=== PATIENT | female | born 1940 | race Caucasian/White ===

== ENCOUNTER 2022-08-17 09:48 | Outpatient (CLI) | payer OTHER, SELFPAY | END 2022-08-17 09:49 | disposition home or self-care (01) | LOC: NFLDREF 08-19 20:09 | PROVIDERS: PCP Internal Medicine; Referring Provider Internal Medicine; Visit Provider Internal Medicine | DX: E78.5 Hyperlipidemia, unspecified (principal) | CPT/HCPCS: 80061 ==

== ENCOUNTER 2023-03-26 13:00 | Outpatient (RCR) | payer MEDICARE, SELFPAY ==
--- NOTE | 2022-12-28 11:14 | PT.OPEX ---
PT [place] Outpatient Eval PT [facility] Outpatient Eval Start: 12/05/22 12:54 Freq: Status: Active Protocol: Document 12/12/22 13:07 HN (Rec: 12/12/22 15:19 HN [id number]) E-signed By Lisa Zapata DPT Physical Therapy Outpatient Evaluation Insurance Information Recert Due Date 03/11/23 Insurance Name [facility] Insurance Information/Comments [facility] Medical Diagnosis M79. 605 for Pain in left leg M79. 604: Pain in right leg. Treating Diagnosis M54. 4: low back pain with sciatica Referring MD Lisa Beach MD Subjective Subjective Patient is a 82 year old female with bilateral glute and leg pain for last 6 months with insidious onset. Worse on L than R nerve pain on L side, bilateral glute pain and left sided nerve pain , thin line of numbness/pain. Pain characteristics: sharp bilateral glute pain, worse in morning and better and night Aggravating factors: worse in morning, sleeps on back, standing for prolonged periods of time. carrying heavier things Easing Factors: soft cushion, walking every day Prior level of function: walking 30 minutes a day every day Current limitations: worse in morning, sleeps on back, standing for prolonged periods of time. carrying heavier things Red flags: denies hx of cancer , recent infection, numbness/ tingling, bowel/bladder changes Imaging: none at this time PMH: HTN managed with medication, celebrex, osteoporosis maybe, R hip replacement, latex allergy Social History: pt is retired, lives with , spending a lot of time on financials, does cooking, enjoys being outside, yardwork. 3 stories uses rail pretty heavily Pain Comments Current: 1-2 Best: 1- Worst: 10/18 Current Work Status Retired Preferred Name Karla Objective Other/Pertinent Objective Lumbar range of motion (% full range of motion) Flexion: 100% Extension: 75% with some increased low back soreness Left sidebendin% Right sidebendin% Left rotation: 100% Right rotation: 100% Hip range of motion (degrees): Flexion: no loss External rotation: mild loss Internal rotation: mod loss Manual muscle testing: Hip flexion: 4/5 L , 4/5 R Hip abduction: 3+/5 L , 3+/5 R Hip extension: 5/5 L , 5/5 R Knee extension: 3+/5 bilaterally, not tested in prone Knee flexion: 4/5 L , 4/5 R Ankle DF: 5/5 L , 5/5 R Ankle PF: 3+/5 tested in sitting TA activation: Special tests: Slump: positive on R Additional special testing deferred Palpation: increased tenderness along bilateral glute med/piriformis with palpation Assessment Assessment/Impression Patient is a 82 year old with complaints of bilateral glute pain and L sided nerve pain . Patient demonstrates impaired hip range of motion, decreased hip strength, positive slump, and increased posterior glute pain consistent with sciatica. The impairments impact the patients prolonged standing, immediately upon waking, and participation in ADLs and IADLs. Patient will benefit from skilled physical therapy to address the impairments and activity limitations listed above. Prognostic factors include chronic nature of symptoms, patient age, and medical comorbidities. Primary Functional Limitations prolonged standing, immediately upon waking, and participation in ADLs and IADLs. Plan of Care Rehabilitation Potential Good Physical Therapy Goals ocean transportation intermediary goals (12 weeks ) 1. Patient will tolerate standing >25 minutes with no increase in pain order to complete ADLs 2. Patient will demonstrate independence with HEP in order to manage symptoms independently at home 3. Patient will tolerate lifting 20 pounds with no increase in pain in order to carry groceries/laundry/ grandchildren. 4. Patient will reports less than 3/10 pain in the morning with waking in order to improved tolerance with morning ADLs and IADLs. 5. Patient will demonstrate 5x time sit to labeling associate 12 seconds or less to demosntrate decreased risk for falls. Coordination/Communication With Referral Source Treatment Plan/Direct Interventions Electrical Stimulation,Gait Training,Joint Mobilization, Manual Therapy,Neuromuscular Re-ed,Self-Care/Home Management,Therapeutic Activities,Therapeutic Exercises Frequency/Duration 1x/week for up to 12 weeks Patient Will Be Discharged From Therapy Completion of LTG(s),Skills Plateau Evaluation Billing Untimed Code Treatment Minutes 26 Complexity Low Certification Information Initial Certification Date 12/12/22 Ending Certification Date 03/11/23 Provider Signature Shows Agreement With POC & Medical Necessity Physician Signature & Date Requested Please Sign/Date Here Physician Comment/Change : Physician NPI Number #
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
== END 2023-06-27 16:53 | disposition home or self-care (01) ==
PROVIDERS: PCP Internal Medicine; Visit Provider Internal Medicine
DX: M79.604 Pain in right leg (principal); M79.605 Pain in left leg; M54.40 Lumbago with sciatica, unspecified side; Z51.89 Encounter for other specified aftercare
CPT/HCPCS: 97110; 97140; 97161

== ENCOUNTER 2024-03-31 14:14 | Outpatient (CLI) | payer MEDICARE, SELFPAY | END 2024-03-31 14:15 | disposition home or self-care (01) | LOC: NFLDREF 14:15 | PROVIDERS: PCP Internal Medicine; Visit Provider Internal Medicine | DX: I10 Essential (primary) hypertension (principal) | CPT/HCPCS: 80048 ==

== ENCOUNTER 2024-10-12 13:38 | Outpatient (CLI) | payer MEDICARE, SELFPAY ==
--- NOTE | 2024-10-12 13:45 | CRLHL7_ITS ---
For Patients: As a result of the 21st Century Cures Act, medical imaging exams and procedure reports are released immediately into your electronic medical record. You may view this report before your referring provider. If you have questions, please contact your health care provider. Indication: Low back pain. Technique: Multiplanar multisequence noncontrast MR images of the lumbar spine. Comparison: Lumbar spine radiograph 10/05/2024. Findings: The lumbar lordosis is preserved. Qfof-st-ucjvdjjh rightward lumbar curvature. Vertebral body heights maintained. No acute fracture. No T1 hypointense lesions. Normal conus terminates at L1-2. T12-L1: Moderate disc height loss. Minimal endplate edema. Shallow disc bulge. Mild facet arthropathy. Mild spinal canal narrowing. No neural foraminal narrowing. L1-2: Mild retrolisthesis. Moderately advanced disc height loss. Mild vertebral body edema. Posterior disc bulge. Mild facet arthropathy. Minimal spinal canal narrowing. Moderate right lateral recess narrowing. No neural foraminal narrowing. L2-3: Mild retrolisthesis. Severe left eccentric disc height loss. Mild vertebral body edema. Mild facet arthropathy. Mild spinal canal narrowing. Moderate left and nafr-ku-sfhtahod right lateral recess stenosis. Minimal left without right neural foraminal narrowing. L3-4: Mild retrolisthesis. Severe disc height loss. Minimal vertebral body edema. Posterior disc bulging and endplate spondylitic ridging. Moderate facet arthropathy. Uwox-yk-fzoiurwd spinal canal and lateral recess narrowing. Mild left without right neural foraminal narrowing. L4-5: Grade 1 anterolisthesis measuring 5 mm. Moderately advanced disc height loss. Mild vertebral body edema. Posterior disc bulge with superimposed small right subarticular disc extrusion demonstrating cephalad migration. Advanced facet arthropathy. Thickening ligamentum flavum. Severe spinal canal and lateral recess stenosis. Right foraminal synovial cyst measuring 2 mm. Tsjw-if-fasyxupx left and moderately severe right neural foraminal stenosis. Edema in the right posterior elements. L5-S1: Minimal grade 1 anterolisthesis. Moderate disc degeneration. Posterior disc bulge. Advanced facet arthropathy. Mild spinal canal narrowing. Moderate right and mild left lateral recess stenosis. Xojz-ul-hrjuuddo right and mild left neural foraminal stenosis. Bilateral renal cysts. Impression: 1. At L4-5, grade 1 anterolisthesis and advanced facet arthropathy contribute to severe spinal canal and lateral recess stenosis. Small synovial cyst contributes to moderately severe right neural foraminal stenosis. Edema in the right posterior elements most compatible with stress response. 2. At L5-S1, moderate right and mild left lateral recess stenosis. Vihe-rh-yhcwzfde right neural foraminal stenosis. Dictated by Dennis Montoya MD @ 10/12/2024 3:53:40 PM (Electronically Signed)
== END 2024-10-12 13:39 | disposition home or self-care (01) ==
LOC: MRI 13:39
PROVIDERS: PCP Internal Medicine; Visit Provider Family Medicine
DX: M54.50 Low back pain, unspecified (principal); M48.061 Spinal stenosis, lumbar region without neurogenic claudication; M48.07 Spinal stenosis, lumbosacral region; G89.29 Other chronic pain
CPT/HCPCS: 72148

== ENCOUNTER 2024-10-30 08:04 | Outpatient (CLI) | payer MEDICARE, SELFPAY | END 2024-10-30 08:05 | disposition home or self-care (01) | LOC: INJ CL 08:05 | PROVIDERS: PCP Internal Medicine; Visit Provider Family Medicine | DX: M54.16 Radiculopathy, lumbar region (principal); M48.062 Spinal stenosis, lumbar region with neurogenic claudication | CPT/HCPCS: 62323; J0702; Q9966 ==

== ENCOUNTER 2024-12-13 12:35 | Outpatient (CLI) | payer OTHER, MEDICARE, SELFPAY | END 2024-12-13 12:36 | disposition home or self-care (01) | LOC: AMB 12-15 16:08 | PROVIDERS: PCP Internal Medicine; Visit Provider Student in an Organized Health Care Education/Training Program | DX: S09.90XA Unspecified injury of head, initial encounter (principal); V44.6XXA Car passenger injured in collision with heavy transport vehicle or bus in traffic accident, initial encounter; Y92.410 Unspecified street and highway as the place of occurrence of the external cause | CPT/HCPCS: A0425; A0429 ==

== ENCOUNTER 2024-12-13 13:01 | Emergency (ER) | payer OTHER, MEDICARE, SELFPAY ==
[2024-12-13] VITALS (10 sets, daily range): BP systolic 166–191; BP diastolic 93–106; PULSE 63–73; RESP 16; TEMP 36.7; O2SAT 95–100
--- OUTSIDE RECORDS SUMMARY | 2024-12-13 13:03 | XMS_ITS | Clinical Summary ---
Author Organization happn [facility] Address [address] [place] [id number] Care Team Providers Care Top Inventory Control Executive Name Role Phone Lisa Beach MD Primary Care Provider [phone] Allergies Active Allergy Reactions Criticality Noted Date Comments Latex Anaphylaxis 07/04/2007 Medications FISH OIL 1,000 MG CAP 1 daily 0 7 Active MEDICATION ORDER COMPOSER calcium supp daily 0 7 Active amLODIPine (NORVASC) 5 mg tabletIndications :Unspecified essential hypertension Take 1 tablet by mouth once daily. 90 tablet 1 1 Active Celecoxib (CELEBREX) 50 mg capsule Take 1 capsule by mouth. 0 3 Active Active Problems Problem Noted Date Diagnosed Date Sensorineural hearing loss, bilateral 09/25/2007 Unspecified essential hypertension 07/04/2007 Anemia, unspecified 07/04/2007 Enthesopathy of hip region 07/04/2007 Encounters Date Type Department Care Team Description 12/11/2024 Nurse Triage [facility] Nurse Triage Lisa Beach MD Toe Pain/problem 12/11/2024 Nurse Triage [facility] Samantha Yancey [facility] [address] [place]THA [place]Y [place] [id number] Lisa Beach MD Error-please disregard (error) 12/11/2024 Nurse Triage [facility] Centralized Nurse Triage Lisa Beach MD Toe Pain/problem (R 2nd toe ) 12/11/2024 Nurse Triage [facility] Nurse Triage Lisa Beach MD Toe Pain/problem 10/30/2024 8:20 AM CDT Office Visit [facility] [address] [facility] [id number] Camron Rodriguez MD Procedure (L5-S1 ILESI) 10/30/2024 Travel 10/19/2024 Transcribe Orders [facility] [address] [facility] [address] Camron Rodriguez MD 10/12/2024 Orders Only [facility] Scanner 1 scan: (1-Ord) [place], LUMBAR SPINE WO CON, 10/12/2024 from Last 3 Months Immunizations Immunization Administration Dates Next Due AMB Influenza, IIV3 (Age >=3 years)(Flu Clinic Only) 01/22/2008 Influenza, IIV3 (Age >=3 years) 12/12/2009,02/22,04/17/2000 Td (Age >=7 Years) 04/17/2000 Family History Medical History Relation Name Comments Heart Disease Father Diabetes Maternal Uncle Heart Disease Mother Osteoporosis Mother Cancer-breast No Family History Relation Name Status Comments Father Maternal Uncle Mother Social History Tobacco Use Types Packs/Day Years Used Date Smoking Tobacco: Never Smokeless Tobacco: Never Alcohol Use Standard Drinks/Week Comments No 0 (1 standard drink = 0.6 oz pur e alcohol) Comments No Sex and Gender Information Value Date Recorded Sex Assigned at Not on file Legal Sex 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 Gender Identity Not on file Sexual Orientation Not on file Obstetrics History Para Term AB IAB SAB Ectopic Multiple Livin g Live Births 2 2 Date Outcome GA Total Labor Labor/2nd/3rd Weight Sex Type Anes PTL Kimberly A1 A5 Name Clin Last Filed Vital Signs Vital Sign Reading Time Taken Comments Blood Pressure 133/77 10/08/2012 4:41 PM CDT Pulse 75 10/08/2012 4:41 PM CDT Temperature 36.5 C (97.7 F) 10/08/2012 4:41 PM CDT Respiratory Rate - - Oxygen Saturation 97% 10/08/2012 4:41 PM CDT Inhaled Oxygen Concentration - - Weight 77.2 kg (170 lb 4 oz) 10/08/2012 4:41 PM CDT Height 163.8 cm (5' 4.5) 10/08/2012 4:41 PM CDT Body Mass Index 28.77 10/08/2012 4:41 PM CDT Plan of Treatment Upcoming Encounters Date Type Department Care Team (Late st Contact Info) Description 12/30/2024 3:00 PM CDT Office Visit [facility] [address] [place] [address] Matteo Muñoz DPM [address] [place] [address] Health Maintenance Due Date Last Done Comments Depression screening for age 12+ 1950 BMI (ht and wt on same day) for age 18+ 1956 Pneumococcal series for age 50+ (1 of 1 - PCV) 1988 Zoster (shingles) series for age 50+ (1 of 2) 1988 Medicare Wellness for age 65+ 10/11/2003 Tetanus booster 04/17/2010 04/17/2000 RSV vaccine for adults or (1 - 1-dose 75+ series) 2013 COVID-19 vaccine series ( season) 2024 03/14/2021, 05/27/2020, 04/29/2020 Influenza Vaccine (#1) 2024 0, 01/22/2008, 02/22/2007, Additional history exists DEXA/DXA scan for age 65+ Completed 11/24/2009, 08/2007 Hepatitis B series for 19+ Aged Out N o longer eligible based on patient's age to complete this topic Procedures Procedure Name Priority Date/Time Associated Diagnosis Comments AMB EPIDURAL STEROID INJECTION Routine 10/30/2024 12:00 AM CDT Lower back pain Other chronic pain Spinal stenosis, unspecified spinal region Radiculopathy, site unspecified SCAN-MRI INTERPRETATION 10/12/2024 12:00 AM CDT XR DXA BONE DENSITY 2 SITES AXIAL Routine 11/24/2009 10:15 AM CDT Estrogen deficiency from Last 3 Months or Most Recently Relevant to Health Maintenance Results * AMB EPIDURAL STEROID INJECTION (10/30/2024 12:00 AM CDT) us Camron Rodriguez MD NEUROLOGY ORD Final Resu lt * SCAN-MRI INTERPRETATION (10/12/2024 12:00 AM CDT) Anatomical Region Laterality Modality Other us Scanner OTHER Final Result * XR DEXA BONE DENSITY 2 SITES (11/24/2009 10:15 AM CDT) Anatomical Region Laterality Modality Spine, HIPS, HIPL, HIPR Other Narrative 11/25/2009 11:17 AM CDT Please see scanned document for results of this study. Procedure Note Gaviota Durbin PA - 11/25/2009 Please see scanned document for results of this study. us Norma Johnson NP DEXA Final Result from Last 3 Months or Most Recently Relevant to Health Maintenance Insurance [facility] MR Care Teams Top Inventory Control Executive Relationship Specialty Start Date End Date Lisa Beach MD [address] [place] [address] PCP - General Internal Medicine 10/08/12
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
== END 2024-12-13 14:38 | disposition home or self-care (01) ==
PROVIDERS: Emergency Provider Family Medicine; PCP Internal Medicine
DX: S00.03XA Contusion of scalp, initial encounter (principal); V43.62XA Car passenger injured in collision with other type car in traffic accident, initial encounter
CPT/HCPCS: 70450; 71045; 72125; 72170; 99284; 99285

== ENCOUNTER 2025-02-19 17:03 | Emergency (ER) | payer MEDICARE, SELFPAY ==
--- OUTSIDE RECORDS SUMMARY | 2025-02-19 17:06 | XMS_ITS | Clinical Summary ---
Author Organization [facility] Address [address] [place] [address] Care Team Providers Care Integrity Specialist Name Role Phone Lisa Beach MD Primary Care Provider [phone] Allergies Active AllergyReactionsCriticalityNoted KdpqXobdnjtuCkgepGcmaolntrfk96/25/2008 Medications MedicationSigDispense QuantityRefillsLast FilledStart DateEnd DateStatus FISH OIL 1,000 MG CAP 1 lmkzw431ctive MEDICATION ORDER COMPOSER calcium supp icwkk280ctive amLODIPine (NORVASC) 5 mg tablet Indications:Unspecified essential hypertensionTake 1 tablet by mouth once daily. 90 tablet ctive Celecoxib (CELEBREX) 50 mg capsule Take 1 capsule by mouth.ctive Active Problems ProblemNoted DateDiagnosed DateSensorineural hearing loss, sjulikits05/17/2008 Unspecified essential /25/2008nemia, tnjippcezeu09/25/2008 Enthesopathy of hip lwnpio2407/04/2007 Encounters DateTypeDepartmentCare QwasSrueoagcgsf15/08/2025 1:15 PM CDTOffice Visit [facility] [address] [place] [address] Matteo Muñoz DPM Consult (Right foot 2nd toenail ingrown)12/16/20246063Fbhjwv91/06/2025Telephone [facility] [address] [place] [address] Matteo Muñoz DPM Appointment Request (Resched. for earlier?)12/11/2024Nurse Triage [facility] Nurse Triage Lisa Beach MD Toe Pain/cdwvdzu6412/11/2024[facility] [address] [place] [address] Lisa Beach MD Error-please disregard (error)12/11/2024Nurse Triage [facility] Nurse Triage Lisa Beach MD Toe Pain/problem (R 2nd toe )12/11/2024Nurse Triage [facility] Nurse Triage Lisa Beach MD Toe Pain/problemfrom Last 3 Months Immunizations ImmunizationAdministration DatesNext DueAMB Influenza, IIV3 (Age >=3 years)(Flu Clinic Only)01/22/2008Influenza, IIV3 (Age >=3 years)12/12/2009,02/22/2007, 04/17/2000Td (Age >=7 Years)04/17/2000 Family History Medical HistoryRelationNameCommentsHeart DiseaseFatherDiabetesMaternal Uncle Heart DiseaseMotherOsteoporosisMotherCancer-breastNo Family HistoryRelationName StatusCommentsFatherMaternal UncleMother Social History Tobacco UseTypesPacks/DayYears UsedDateSmoking Tobacco: NeverSmokeless Tobacco: NeverAlcohol UseStandard Drinks/WeekCommentsNo0 (1 standard drink = 0.6 oz pure alcohol)CommentsNoSex and Gender InformationValueDate RecordedSex Assigned at BirthNot on fileLegal HkvYkhpbv74/14/2013 5:41 AM CSTGender Identity Not on fileSexual OrientationNot on file Obstetrics History GravidaParaTermPretermABIABSABEctopicMultipleLivingLive Onrzic67TlntGgizwxtEG Total LaborLabor/2nd/7tmBgyotdVqbQgogCaazFBGRyuA3F5NliwKfdaLklpujkWzbfchs Last Filed Vital Signs Vital SignReadingTime TakenCommentsBlood Jnmyxvgh968/8412/16/2024 12:57 PM CDT Syiht850012/16/2024 12:57 PM NKPEexfcguyudw44.5 ??C (97.7 ??F)10/08/2012 4:41 PM CDTRespiratory Rate--Oxygen Wkapanazly49%12/16/2024 12:57 PM CDTInhaled Oxygen Concentration--Djhqlc88.2 kg (141 lb 9.6 oz)12/16/2024 12:57 PM DSDVzqsqy516.8 cm (5' 4.5)10/08/2012 4:41 PM CDTBody Mass Index-- Plan of Treatment Health MaintenanceDue DateLast DoneCommentsDepression screening for age 12+ 1950MI (ht and wt on same day) for age 18+1956Pneumococcal series for age 50+ (1 of 1 - PCV)1988Zoster (shingles) series for age 50+ (1 of 2)1988Medicare Wellness for age 65+10/11/2003Tetanus qsufhvr1004/17/2010 04/17/2000RSV vaccine for adults or (1 - 1-dose 75+ series)2013 COVID-19 vaccine series ( season)501/06/2021, 05/27/2020, 04/29/2020Influenza Vaccine (#1), 01/22/2008, 02/22/2007, Additional history existsDEXA/DXA scan for age 65+Oghvktksu43/16/2010, 07/15/2007Hepatitis B series for 19+Aged OutNo longer eligible based on patient's age to complete this topic Procedures Procedure NamePriorityDate/TimeAssociated DiagnosisCommentsXR DXA BONE DENSITY 2 SITES EBAIKOcqvofu63/16/2010 10:15 AM CDT Estrogen deficiency from Last 3 Months or Most Recently Relevant to Health Maintenance Results * XR DEXA BONE DENSITY 2 SITES (11/24/2009 10:15 AM CDT)Anatomical Region LateralityModalitySpine, HIPS, HIPL, HIPROtherSpecimen (Source)Anatomical Location / LateralityCollection Method / VolumeCollection TimeReceived Time Narrative 11/25/2009 11:17 AM CDT Please see scanned document for results of this study. Procedure Note Gaviota Durbin PA - 11/25/2009 Please see scanned document for results of this study. Authorizing ProviderResult TypeResult StatusNorma Johnson NPDEXAFinal Result from Last 3 Months or Most Recently Relevant to Health Maintenance Insurance * Guarantor: Karla Fink TypeRelation to PatientDate of PhoneBilling AddressPersonal/JvskxfRrsc89/02/1941 [phone] [place] [address] Care Teams Team MemberRelationshipSpecialtyStart DateEnd Date Lisa Beach MD [address] [place] [address] PCP - GeneralInternal Medicine10/08/12
[2025-02-19 17:14] VITALS: BP 168/100; PULSE 76; RESP 20; TEMP 36.4; O2SAT 96; BMI 25.3
--- NOTE | 2025-02-19 18:49 | ED.GENADULT ---
HPI - General Adult General Date Seen: 02/19/25 Chief complaint: Hypertension Stated complaint: High blood pressure Time Seen by Provider: 02/19/25 18:21 Source: patient, family, RN notes reviewed and old records reviewed Mode of arrival: ambulatory Limitations: no limitations History of Present Illness HPI narrative: this pleasant 84-year-old female presents here with her family, niece and significant other with a history of a of elevated blood pressure during her therapy session for her low back. And right hip. She had of blood pressure of 186 on 100. With this she describes some fogginess, and maybe some left shoulder issues. She has had shoulder issues on and off, significantly better since she has used Celebrex. The therapist was a little concerned as a pharmacist has been before because the Celebrex can drive up her blood pressure. She was having no significant chest pain shortness of breath associated with this, and now feels pretty good. They stop to eat before they came here, and her niece says she feels significantly better now. She had to wait for 1 hour in the emergency room room, and the this occurred 2 hours earlier than that. History of elevated blood pressure, history of mild cognitive impairment, history of frailty syndrome Denies any shortness of breath chest pain numbness and tingling or weakness, no blurriness of vision, no current headache, or other symptoms. Related Data Home Medications ?Medication ?Instructions ?Recorded ?Confirmed vit C 250 mg-E 90 mg-zinc 40 1 tab PO QAM AND QPM PRN 03/19/24 02/19/25 mg-copper 1 [id number] chew tablet (PreserVision AREDS-2) acetaminophen 500 mg tablet 500 mg PO Q8H PRN 12/31/24 02/19/25 (Tylenol Extra Strength) celecoxib 100 mg capsule 100 mg PO BID 02/19/25 02/19/25 Previous Rx's ?Medication ?Instructions ?Recorded amlodipine 2.5 mg tablet 2.5 mg PO QDAY #90 tabs 04/02/24 polyethylene glycol 3350 17 17 g PO QDAY #510 grams 12/31/24 gram/dose oral powder (Miralax) Allergies Allergy/AdvReac Type Severity Reaction Status Date / Time No Known Drug Allergies Allergy Verified 02/19/25 17:14 Review of Systems Status of ROS: Reports: 10 or more systems reviewed and unremarkable except as noted in History and below PFSH PFSH Surgical History 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) ?Z96.641 - Presence of right artificial hip joint (ICD-10) History of total abdominal hysterectomy (1983) ?Z90.710 - Acquired absence of both cervix and uterus (ICD-10) History of cataract extraction with lens replacement (10/30/12) History of appendectomy (07/30/11) ?Z90.49 - Acquired absence of other specified parts of digestive tract (ICD-10) Social History Smoking Status: Never smoker Do you use any of these nicotine containing products: None Second hand tobacco smoke exposure: No How often do you have a drink containing alcohol: never AUDIT-C Alcohol total score: 0 Non-prescribed substance use: denies use Exam Narrative: Exam Narrative: On examination in room 2 she is in no apparent distress, alert oriented, nontoxic, her blood pressure is noted, her pupils equal round reactive to light, and neck is supple cranial nerves 3-12 are normal, carotid upstrokes are equal bilaterally JVP is flat heart sounds are normal, her chest is good air entry bilaterally no wheezing crackles noted she is able to get up and walk around the room, otherwise is doing well. Skin is no petechiae rashes, there is no edema in her lower extremities, she moves her lower extremities and upper extremities both distally and proximally normal. Const: Vital Signs, click to edit/add: Vital Signs - 24 hr 02/19/25 17:14 Temperature 97.5 F L Pulse Rate [Pulse Oximeter] 76 Respiratory Rate 20 Blood Pressure [Ri ght Upper Arm] 168/100 H Pulse Oximetry 96 Oxygen Delivery Me thod Room Air Documenting provider has reviewed patient's vital signs: yes Course Vital Signs Vital signs: Initial Vital Signs Temperature 97.5 F L 02/19/25 17:14 Temperature Source Temporal Artery Scan 02/19/25 17:14 Pulse Rate 76 02/19/25 17:14 Respiratory Rate 20 02/19/25 17:14 Blood Pressure 168/100 H 02/19/25 17:14 Blood Pressure Mean 122 H 02/19/25 17:14 Pulse Oximetry 96 12/12/25 17:14 Oxygen Delivery Method Room Air 02/19/25 17:14 Vital Signs Temperature 97.5 F L 02/19/25 17:14 Pulse Rate 76 02/19/25 17:14 Respiratory Rate 20 02/19/25 17:14 Blood Pressure 168/100 H 02/19/25 17:14 Pulse Oximetry 96 02/19/25 17:14 Oxygen Delivery Method Room Air 02/19/25 17:14 Temperature 97.5 F L 02/19/25 17:14 Pulse Rate 76 02/19/25 17:14 Respiratory Rate 20 02/19/25 17:14 Blood Pressure 168/100 H 02/19/25 17:14 Pulse Oximetry 96 02/19/25 17:14 Oxygen Delivery Method Room Air 02/19/25 17:14 Medical Decision Making MDM Narrative Medical decision making narrative: I discussed with her that I am not that concerned about her elevated blood pressure, and someone who normally has elevated blood pressure I went back and checked her clinic visits and she was 160 on 80 there in the clinic. It is true that the Celebrex can elevate her blood pressure and I would if she wants she can trial this off, would go to once a day for a week or so and then go to every other day for week and then stop it, Tylenol might be a better medication regular for her discomfort. Although if there is arthritis of her left shoulder this can not help as much. I did suggest that we do an EKG and a troponin on her as sometimes shoulder issues can masquerade like heart issues. After shared decision-making she elected not to do this. During the evaluation of this patient I considered multiple differential diagnosis is. The life-threatening differential diagnosis include coronary disease/GA, pulmonary embolism, pneumothorax, pneumonia, and aortic dissection. Other differential diagnosis included but were not limited to pericarditis, myocarditis, chest wall pain, GERD, esophageal rupture, rib fracture contusion, pleurisy, as well as other etiologies. Medical Records Medical records reviewed: Yes I reviewed the patient's medical records Discharge Plan Discharge Clinical Impression: Hypertension Osteoarthritis of left shoulder Qualifiers: Osteoarthritis type: primary Qualified Code(s): M19.012 - Primary osteoarthritis, left shoulder Chronic low back pain Qualifiers: Back pain laterality: bilateral Sciatica presence: unspecified whether sciatica present Qualified Code(s): M54.50 - Low back pain, unspecified Patient Disposition: Home w/ Parent or Adult Condition: Improved Instructions: Chronic Hypertension (DC) Additional Instructions: Home rest, I would suggest that may be backing off on your Celebrex to once a day and taking Tylenol 1000 mg twice daily would be a better choice for your back pain. Reassuring examination here today, if you do developed chest pain shortness of breath then please come back, and be seen. I do recommend that she follow up with Dr. Beach. Happy holidays! Activity Level: Light activity Discharge Diet: Regular Prescriptions: No Action PreserVision AREDS-2 250-90-40-1 mg tablet,chewable 1 tab PO QAM AND QPM PRN amlodipine 2.5 mg tablet 2.5 mg PO QDAY Qty: 90 3RF acetaminophen [Tylenol Extra Strength] 500 mg tablet 500 mg PO Q8H PRN polyethylene glycol 3350 [Miralax] 17 gram/dose powder 17 g PO QDAY Qty: 510 3RF Rx Instructions: 1 cap full with full glas of liquid daily celecoxib 100 mg capsule 100 mg PO BID Follow Up/Referrals: Lisa Beach MD [Primary Care Provider, Internal Medicine] Stand Alone Forms: [facility] Info Instructions
== END 2025-02-19 19:03 | disposition home or self-care (01) ==
LOC: ED 18:56
PROVIDERS: Emergency Provider Family Medicine; PCP Internal Medicine
DX: I10 Essential (primary) hypertension (principal); M19.012 Primary osteoarthritis, left shoulder; M54.50 Low back pain, unspecified; N39.498 Other specified urinary incontinence; R27.8 Other lack of coordination; Z51.89 Encounter for other specified aftercare
CPT/HCPCS: 99284